=== PATIENT | female | born 1995 | race Caucasian/White ===

== ENCOUNTER 2020-01-29 14:47 | Emergency (ER) | payer OTHER ==
[2020-01-29 15:28] LABS: Urine Blood NEGATIVE (NEG); Urine Glucose NEGATIVE (NEG); Urine Protein 2+ (NEG); Urine Specific Gravity 1.025 (1.005-1.030)
[2020-01-29 15:40] LABS: Urine Amorphous Sediment 2+ /HPF (NONE SEEN); Urine Bacteria 20-50 /HPF (<20); Urine Culture Reflex Order NOT NEEDED; Urine RBC <5 /HPF (NONE SEEN)
[2020-01-29] MEDS ORDERED: NA CHLORIDE 0.9% 1,000 ML ONE ×2 (16:24→17:08)
[2020-01-29 16:29] LABS: Absolute Lymphocytes (CBC) 0.7 K/uL (0.7-4.9); Basophils % 0.2 % (0-1.3); Hematocrit 46.8 % (36.0-45.0); Lymphocytes % 3.7 % (15.3-44.8); MPV 8.3 fL (7.6-11.3); RBC Red Blood Cell Count 5.18 M/uL (3.86-4.86)
[2020-01-29 16:30] LABS: Protime INR 1.09
--- NOTE | 2020-01-29 16:40 | RAD REPORT ---
EXAM DESCRIPTION: CT - Head Brain Wo Cont - 01/29/2020 4:31 pm CLINICAL HISTORY: Headache COMPARISON: None. TECHNIQUE: Computed axial tomography of the head was obtained. IV contrast was not requested. All CT scans are performed using dose optimization technique as appropriate and may include automated exposure control or mA/KV adjustment according to patient size. FINDINGS: An intracranial bleed is not seen . The ventricles are normal in caliber. No extra-axial fluid collection is noted. Fluid within the sinuses/ mastoids is not seen. IMPRESSION: No acute intracranial abnormality is seen. If patient's symptoms persist MRI of the bra in would be recommended.
[2020-01-29 16:43] LABS: ALT/SGPT 21 U/L (12-78); AST/SGOT 11 U/L (15-37); Albumin 4.3 g/dL (3.4-5.0); Alkaline Phosphatase 129 U/L (45-117); BUN Blood Urea Nitrogen 10 mg/dL (7-18); Bicarbonate 26 mmol/L (21-32); Bilirubin Direct < 0.1 mg/dL (0-0.2); Bilirubin Total 0.4 mg/dL (0.2-1.0); Glucose Level 81 mg/dL (74-106); Magnesium 2.1 mg/dL (1.8-2.4); Potassium 3.6 mmol/L (3.5-5.1); Protein, Total 9.5 g/dL (6.4-8.2); Sodium Level 137 mmol/L (136-145)
[2020-01-29] MEDS ORDERED: DIPHENHYDRAMINE 50 MG/ML VIAL ONE (17:07)
[2020-01-29] MEDS ORDERED: METOCLOPRAMIDE 10 MG/2mL INJ ONE (17:07)
[2020-01-29] MEDS ORDERED: ONDANSETRON 4 MG/2 ML VIAL ONE (17:08)
[2020-01-29] MEDS ORDERED: dexAMETHasone 10 MG/ML VIAL ONE (17:08)
[2020-01-29 17:37] LABS: Blood Morphology Comment NOT SEEN (NOT SEEN); Platelet Estimate ADEQ; Urine White Blood Cell Casts OK
[2020-01-29] MEDS ORDERED: ACETAMINOPHEN 500 MG TAB ONE (18:23)
--- NOTE | 2020-01-29 19:11 | ER ---
Nurse's Notes [facility] Name: Debbi Roman Age: 24 yrs Sex: Female : 1995 Arrival Date: 01/29/2020 Time: 14:51 Bed 19 Private MD: Diagnosis: Dizziness and giddiness;Headache;Nausea;Back pain Presentation: 01/28 14:55 Chief complaint: Patient states: Dizzy spells started today. History of dizzy spells ca1 since a kid. Reports headache, back pain and nausea, denies vomiting. Coronavirus screen: The patient has NOT traveled to a country currently being monitored by the [facility] within the last 14 days. The patient has NOT had contact with any known and/or suspected case of coronavirus. Ebola Screen: Patient negative for fever greater than or equal to 101.5 degrees Fahrenheit, and additional compatible Ebola Virus Disease symptoms Patient denies exposure to infectious person. Patient denies travel to an Ebola-affected area in the 21 days before illness onset. No symptoms or risks identified at this time. Initial Sepsis Screen: Does the patient meet any 2 criteria? No. Patient's initial sepsis screen is negative. Does the patient have a suspected source of infection? No. Patient's initial sepsis screen is negative. Risk Assessment: Do you want to hurt yourself or someone else? Patient reports no desire to harm self or others. Onset of symptoms was January 29, 2020. 14:55 Method Of Arrival: Ambulatory ca1 14:55 Acuity: CAMILA 3 ca1 Triage Assessment: 14:58 General: Appears in no apparent distress. comfortable, Behavior is calm, cooperative, ca1 appropriate for age. 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 - Social history:: Smoking status: Patient reports the use of cigarette tobacco products, smokes one pack cigarettes per day. Screenin:58 Abuse screen: Denies threats or abuse. Denies injuries from another. Nutritional jl7 screening: No deficits noted. Tuberculosis screening: No symptoms or risk factors identified. Fall Risk IV access (20 points). Total Arreaga Fall Scale indicates No Risk (0-24 pts). Assessment: 15:20 General: Appears in no apparent distress. uncomfortable, Behavior is calm, cooperative, jl7 appropriate for age. Pain: Complains of pain in SAWANT Pain currently is 10 out of 10 on a pain scale. Neuro: Level of Consciousness is awake, alert, obeys commands, Oriented to person, place, time, situation. Cardiovascular: Patient's skin is warm and dry. Respiratory: Airway is patent Respiratory effort is even, unlabored, Respiratory pattern is regular, symmetrical. GI: Abdomen is non-distended, Reports nausea. : No signs and/or symptoms were reported regarding the genitourinary system. EENT: No signs and/or symptoms were reported regarding the EENT system. Derm: Skin is pink, warm \T\ dry. 16:30 Reassessment: Patient appears in no apparent distress at this time. Patient and/or jl7 family updated on plan of care and expected duration. Pain level reassessed. Patient is alert, oriented x 3, equal unlabored respirations, skin warm/dry/pink. 18:15 Reassessment: Patient appears in no apparent distress at this time. Patient and/or jl7 family updated on plan of care and expected duration. Pain level reassessed. Patient is alert, oriented x 3, equal unlabored respirations, skin warm/dry/pink. SAWANT rated 5/10 at this time. Patient states symptoms have improved. 19:08 Reassessment: Patient and/or family updated on plan of care and expected duration. Pain ea level reassessed. Patient is alert, oriented x 3, equal unlabored respirations, skin warm/dry/pink. Discharge instruction given to patient, verbalized the understanding of instruction. Pt left ED ambulatory accompanied by family. Pt tolerating well. Vital Signs: 14:55 BP 96 / 58; Pulse 111; Resp 17 S; Temp 97.5(TE); Pulse Ox 100% on R/A; Weight 89.81 kg ca1 (R); Height 5 ft. 6 in. (167.64 cm) (R); 15:28 BP 117 / 64 LA Supine; Pulse 93; Resp 16; Pulse Ox 100% on R/A; dh3 15:30 BP 107 / 62 LA Sitting; Pulse 107; Resp 18; Pulse Ox 100% on R/A; dh3 15:32 BP 103 / 53 LA Standing; Pulse 119; Resp 19; Pulse Ox 100% on R/A; dh3 16:58 BP 114 / 76; Pulse 111; Resp 15 S; Pulse Ox 99% on R/A; jl7 17:44 BP 124 / 73; Pulse 108; Resp 16 S; Temp 99.6(O); Pulse Ox 100% on R/A; jl7 19:00 BP 117 / 65; Pulse 103; Resp 18; Temp 98.9; Pulse Ox 98% ; ea 14:55 Body Mass Index 31.96 (89.81 kg, 167.64 cm) ca1 ED Course: 14:51 Patient arrived in ED. mr 14:58 Triage completed. ca1 14:58 Arm band placed on right wrist. ca1 15:11 Sinan Wooten PA is PHCP. cp 15:11 Girish Webster MD is Attending Physician. cp 15:16 Urine collected: clean catch specimen, clear. dh3 15:20 Patient has correct armband on for positive identification. Placed in gown. Bed in low jl7 position. Call light in reach. Side rails up X 1. director of video analytics on. Pulse ox on. NIBP on. 15:48 Jean Carlos Pierre, MAGED is Primary Nurse. jl7 16:00 Initial lab(s) drawn, by me, sent to lab. Inserted saline lock: 22 gauge in right jl7 antecubital area, using aseptic technique. Blood collected. 16:32 CT Head Brain wo Cont In Process Unspecified. EDMS 16:46 EKG done, by ED staff, reviewed by Sinan DUBON. jp3 19:05 No provider procedures requiring assistance completed. IV discontinued, intact, ea bleeding controlled, No redness/swelling at site. Pressure dressing applied. Administered Medications: 16:50 Drug: NS 0.9% 1000 ml Route: IV; Rate: 1 bolus; Site: right antecubital; jl7 17:45 Follow up: Response: No adverse reaction; IV Status: Completed infusion; IV Intake: jl7 1000ml 17:00 Drug: Zofran (Ondansetron) 4 mg Route: IVP; Site: right antecubital; 7 17:15 Follow up: Response: No adverse reaction; Nausea is decreased jl7 17:02 Drug: Benadryl 12.5 mg Route: IVP; Site: right antecubital; jl7 18:16 Follow up: Response: No adverse reaction jl7 17:04 Drug: Reglan 10 mg Route: IVP; Site: right antecubital; jl7 18:16 Follow up: Response: No adverse reaction; Pain is decreased jl7 17:06 Drug: Decadron - Dexamethasone 10 mg Route: IVP; Site: right antecubital; jl7 17:30 Follow up: Response: No adverse reaction; Pain is decreased jl7 17:10 Drug: NS 0.9% 1000 ml Route: IV; Rate: 1 bolus; Site: right antecubital; jl7 19:00 Follow up: Response: No adverse reaction; IV Status: Completed infusion; IV Intake: ea 500ml 18:20 Drug: Tylenol 1000 mg Route: PO; jl7 19:00 Follow up: Response: No adverse reaction ea Intake: 17:45 IV: 1000ml; Total: 1000ml. jl7 19:00 IV: 500ml; Total: 1500ml. ea Outcome: 18:49 Discharge ordered by MD. chapito 19:10 Discharged to home ambulatory, with significant other. ea 19:10 Condition: stable 19:10 Discharge instructions given to patient, Instructed on discharge instructions, follow up and referral plans. medication usage, Demonstrated understanding of instructions, follow-up care, medications, Prescriptions given X 3. 19:11 Patient left the ED. ea Signatures: Dispatcher [employer] EDHI Kemi Salazar Sinan Mueller PA PA cp Leal, Jahala, RN RN jl7 Rae Laureano 3 Sapphire Bowen RN RN ea Pisarski, Jacob 3 Ning Johnston RN RN ca1
--- NOTE | 2020-01-29 19:11 | EDPHYS ---
Physician Documentation [facility] Name: Debbi Roman Age: 24 yrs Sex: Female : 1995 Arrival Date: 01/29/2020 Time: 14:51 Bed 19 Private MD: ED Physician Girish Webster HPI: 01/28 15:45 This 24 yrs old Female presents to ER via Ambulatory with complaints of cp Dizziness, Nausea. 15:45 The patient presents with dizziness, feeling faint, lightheadedness, sense of spinning. cp Onset: The symptoms/episode began/occurred today. Associated signs and symptoms: Pertinent positives: headache, nausea, Pertinent negatives: abdominal pain, chest pain, focal weakness, palpitations, syncope, vomiting. Severity of symptoms: in the emergency department the symptoms are unchanged despite home interventions. Patient's baseline: Neuro: alert and fully oriented, Motor: no deficits, Ambulation: walks without assistance, Speech: normal. 15:45 The patient has experienced similar episodes in the past, multiple times, today's cp symptoms are similar, to previous episodes. 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 - Social history:: Smoking status: Patient reports the use of cigarette tobacco products, smokes one pack cigarettes per day. ROS: 15:50 Constitutional: Negative for body aches, chills, fever, poor PO intake. cp 15:50 Eyes: Negative for injury, pain, redness, and discharge. cp 15:50 ENT: Negative for drainage from ear(s), ear pain, sore throat, difficulty swallowing, difficulty handling secretions. 15:50 Cardiovascular: Negative for chest pain, palpitations. 15:50 Respiratory: Negative for cough, shortness of breath, wheezing. 15:50 Abdomen/GI: Positive for nausea, Negative for abdominal pain, vomiting, diarrhea, constipation. 15:50 Back: Positive for pain at rest, pain with movement. 15:50 : Negative for urinary symptoms. 15:50 Skin: Negative for rash. 15:50 Neuro: Positive for dizziness, headache, near syncope, Negative for altered mental status, weakness. 15:50 All other systems are negative. Exam: 15:55 Constitutional: The patient appears in no acute distress, alert, awake, cp non-diaphoretic, non-toxic, well developed, well nourished. 15:55 Head/Face: Normocephalic, atraumatic. Eyes: Pupils equal round and reactive to light, cp extra-ocular motions intact. Lids and lashes normal. Conjunctiva and sclera are non-icteric and not injected. Cornea within normal limits. Periorbital areas with no swelling, redness, or edema. ENT: Nares patent. No nasal discharge, no septal abnormalities noted. Tympanic membranes are normal and external auditory canals are clear. Oropharynx with no redness, swelling, or masses, exudates, or evidence of obstruction, uvula midline. Mucous membranes moist. Neck: Trachea midline, no thyromegaly or masses palpated, and no cervical lymphadenopathy. Supple, full range of motion without nuchal rigidity, or vertebral point tenderness. No Meningismus. Chest/axilla: Normal chest wall appearance and motion. Nontender with no deformity. No lesions are appreciated. 15:55 Cardiovascular: Rate: tachycardic, Rhythm: regular, Heart sounds: murmur, not appreciated, rub, not appreciated, gallop, not appreciated, Edema: is not appreciated. 15:55 Respiratory: the patient does not display signs of respiratory distress, Respirations: normal, no use of accessory muscles, no retractions, labored breathing, is not present, Breath sounds: are clear throughout, no decreased breath sounds, no stridor, no wheezing. 15:55 Abdomen/GI: Inspection: abdomen appears normal, Bowel sounds: active, all quadrants, Palpation: abdomen is soft and non-tender, in all quadrants, rebound tenderness, is not appreciated, voluntary guarding, is not appreciated, involuntary guarding, is not appreciated. 15:55 Back: pain, that is mild, of the low back area and mid back area, ROM is normal. 15:55 Skin: cellulitis, is not appreciated, no rash present. 15:55 Neuro: Orientation: to person, place \T\ time. Mentation: is normal, Cerebellar function: is grossly normal, Motor: moves all fours, strength is normal, Sensation: is normal. 16:55 ECG was reviewed by the Attending Physician. Vital Signs: 14:55 BP 96 / 58; Pulse 111; Resp 17 S; Temp 97.5(TE); Pulse Ox 100% on R/A; Weight 89.81 kg ca1 (R); Height 5 ft. 6 in. (167.64 cm) (R); 15:28 BP 117 / 64 LA Supine; Pulse 93; Resp 16; Pulse Ox 100% on R/A; dh3 15:30 BP 107 / 62 LA Sitting; Pulse 107; Resp 18; Pulse Ox 100% on R/A; dh3 15:32 BP 103 / 53 LA Standing; Pulse 119; Resp 19; Pulse Ox 100% on R/A; dh3 16:58 BP 114 / 76; Pulse 111; Resp 15 S; Pulse Ox 99% on R/A; jl7 17:44 BP 124 / 73; Pulse 108; Resp 16 S; Temp 99.6(O); Pulse Ox 100% on R/A; jl7 19:00 BP 117 / 65; Pulse 103; Resp 18; Temp 98.9; Pulse Ox 98% ; ea 14:55 Body Mass Index 31.96 (89.81 kg, 167.64 cm) ca1 MDM: 15:17 Patient medically screened. cp 16:00 Differential diagnosis: cardiac arrhythmia, generalized weakness, hypovolemia, cp idiopathic dizziness, , vertigo. 18:00 Data reviewed: vital signs, nurses notes, lab test result(s), EKG, radiologic studies, cp CT scan. 18:00 Test interpretation: by ED physician or midlevel provider: ECG. 18:45 Counseling: I had a detailed discussion with the patient and/or guardian regarding: the cp historical points, exam findings, and any diagnostic results supporting the discharge/admit diagnosis, lab results, radiology results, to return to the emergency department if symptoms worsen or persist or if there are any questions or concerns that arise at home. 18:45 Response to treatment: the patient's symptoms have markedly improved after treatment, cp and as a result, I will discharge patient. ED course: VSS. Symptoms improved with IV fluids and meds. Will discharge to home for continued monitoring. 01/28 14:52 Order name: Urine Culture snw 01/28 14:52 Order name: Urine Microscopic Only; Complete Time: 15:44 snw 01/28 16:56 Interpretation: Normal except: UBACT 20-50. cp 01/28 15:16 Order name: Urine Dipstick--Ancillary (enter results); Complete Time: 15:44 bd 01/28 17:51 Interpretation: Normal except: UPROT 2+. cp / 15:16 Order name: Urine --Ancillary (enter results); Complete Time: 15:44 bd 01/28 15:45 Order name: Basic Metabolic Panel; Complete Time: 16:55 cp 01/28 15:45 Order name: CBC with Diff; Complete Time: 17:51 cp 01/28 16:55 Interpretation: Normal except: WBC 18.2; RBC 5.18; HGB 15.6; HCT 46.8; BERE% 91.2; LYM% cp 3.7; NEUT A 16.6. 01/28 15:45 Order name: LFT's; Complete Time: 16:55 cp 01/28 16:56 Interpretation: Normal except: AST 11; ALK 129; TP 9.5; GLOB 5.2; A/G 0.8. cp 01/28 15:45 Order name: Magnesium; Complete Time: 16:55 cp 01/28 15:45 Order name: PT-INR; Complete Time: 16:55 cp 01/28 16:22 Order name: CT Head Brain wo Cont; Complete Time: 16:55 cp 01/28 16:56 Interpretation: Report reviewed. cp 01/28 17:37 Order name: CBC Smear Scan; Complete Time: 17:51 EDMS 01/28 17:51 Interpretation: Reviewed. cp 01/28 14:52 Order name: Urine Test (obtain specimen); Complete Time: 15:16 snw 01/28 14:52 Order name: Urine Dipstick-Ancillary (obtain specimen); Complete Time: 15:16 snw 01/28 15:11 Order name: Orthostatics; Complete Time: 15:35 cp 01/28 15:45 Order name: EKG; Complete Time: 15:46 cp 01/28 15:45 Order name: Cardiac monitoring; Complete Time: 16:32 cp 01/28 15:45 Order name: EKG - Nurse/Tech; Complete Time: 16:32 cp 01/28 15:45 Order name: IV Saline Lock; Complete Time: 16:32 cp 01/28 15:45 Order name: Labs collected and sent; Complete Time: 16:32 cp 04 15:45 Order name: O2 Per Protocol; Complete Time: 16:32 cp 04 15:45 Order name: O2 Sat Monitoring; Complete Time: 16:32 cp EC:55 Rate is 103 beats/min. Rhythm is regular. WV interval is normal. QRS interval is cp normal. QT interval is normal. Interpreted by me. Reviewed by me. Administered Medications: 16:50 Drug: NS 0.9% 1000 ml Route: IV; Rate: 1 bolus; Site: right antecubital; jl7 17:45 Follow up: Response: No adverse reaction; IV Status: Completed infusion; IV Intake: jl7 1000ml 17:00 Drug: Zofran (Ondansetron) 4 mg Route: IVP; Site: right antecubital; jl7 17:15 Follow up: Response: No adverse reaction; Nausea is decreased jl7 17:02 Drug: Benadryl 12.5 mg Route: IVP; Site: right antecubital; jl7 18:16 Follow up: Response: No adverse reaction jl7 17:04 Drug: Reglan 10 mg Route: IVP; Site: right antecubital; jl7 18:16 Follow up: Response: No adverse reaction; Pain is decreased jl7 17:06 Drug: Decadron - Dexamethasone 10 mg Route: IVP; Site: right antecubital; jl7 17:30 Follow up: Response: No adverse reaction; Pain is decreased jl7 17:10 Drug: NS 0.9% 1000 ml Route: IV; Rate: 1 bolus; Site: right antecubital; jl7 19:00 Follow up: Response: No adverse reaction; IV Status: Completed infusion; IV Intake: ea 500ml 18:20 Drug: Tylenol 1000 mg Route: PO; jl7 19:00 Follow up: Response: No adverse reaction ea Disposition: 01/29 10:47 Co-signature as Attending Physician, Girish Webster MD I agree with the assessment and kdr plan of care. Disposition: 01/29/20 18:49 Discharged to Home. Impression: Dizziness and giddiness, Headache, Nausea, Back pain. - Condition is Stable. - Discharge Instructions: Dizziness, General Headache Without Cause, Nausea, Adult. - Prescriptions for Meclizine 25 mg Oral Tablet - take 1 tablet by ORAL route every 8 hours As needed; 30 tablet. Zofran 4 mg Oral Tablet - take 1 tablet by ORAL route every 12 hours As needed; 20 tablet. Bactrim DS 800- 160 mg Oral Tablet - take 1 tablet by ORAL route every 12 hours for 5 days; 10 tablet. - Medication Reconciliation Form, Thank You Letter, Antibiotic Education, Prescription Opioid Use form. - Follow up: Private Physician; When: 2 - 3 days; Reason: Recheck today's complaints. - Problem is new. - Symptoms have improved. Signatures: Dispatcher [employer] EDMS Girish Webster MD MD kdr Therrien, Shelly, FATMATA-C CLEANER ASSISTANT-Csnw Sinan Wooten PA PA cp Leal, Jahala, RN RN jl7 Sapphire Bowen RN RN ea Acob, Cheryl, RN RN ca1 Corrections: (The following items were deleted from the chart) 01/28 17:22 01/27 16:55 ECG was reviewed by the Attending Physician. cp 01/28 17:22 01/27 16:55 Rate is 103 beats/min. Rhythm is regular. WV interval is normal. QRS cp interval is normal. QT interval is normal. Interpreted by me. Reviewed by me. cp 01/28 18:49 18:49 01/29/2020 18:49 Discharged to Home. Impression: Dizziness and giddiness; cp Headache; Nausea. Condition is Stable. Forms are Medication Reconciliation Form, Thank You Letter, Antibiotic Education, Prescription Opioid Use. Follow up: Private Physician; When: 2 - 3 days; Reason: Recheck today's complaints. Problem is new. Symptoms have improved. cp 19:11 18:49 01/29/2020 18:49 Discharged to Home. Impression: Dizziness and giddiness; ea Headache; Nausea; Back pain. Condition is Stable. Forms are Medication Reconciliation Form, Thank You Letter, Antibiotic Education, Prescription Opioid Use. Follow up: Private Physician; When: 2 - 3 days; Reason: Recheck today's complaints. Problem is new. Symptoms have improved. cp
[2020-01-29 19:27] VITALS: BP 124/73; TEMP 99.6; O2SAT 100
--- NOTE | 2020-01-30 11:40 | EKG ---
Test Date: 2020-01-29 Test Time: 16:46:22 Quote Clerk: YSABEL MEASUREMENT RESULTS: Intervals: Rate: 103 IN: 190 QRSD: 98 QT: 332 QTc: 434 [facility]: P: 55 IN: 190 QRS: 84 T: 51 INTERPRETIVE STATEMENTS: Sinus tachycardia Possible Left atrial enlargement Incomplete right bundle branch block Borderline ECG No previous ECG available for comparison Electronically Signed On 01-30-20 11:37:00 PHLEBOTOMY MANAGER by Armani Montalvo
== END 2020-01-29 19:11 | disposition home or self-care (01) ==
LOC: ER 14:47
DX: R51 Headache (principal); M54.5 Low back pain; R11.0 Nausea; R42 Dizziness and giddiness
CPT/HCPCS: 96361; 93005; 87088; 85025; 87086; 80048; 36415; 83735; 81025; 85610; 80076; 70450; 96375; 96374; 99285; J2765; J1200; J1100; J7030 ×2; J2405; 81003; 81015

== ENCOUNTER 2021-07-04 16:39 | Emergency (ER) | payer OTHER ==
--- NOTE | 2021-07-04 17:22 | EDPHYS ---
Physician Documentation [facility] Name: Debbi Roman Age: 25 yrs Sex: Female : 1995 Arrival Date: 07/04/2021 Time: 16:44 Bed Waiting Private MD: ED Physician Sinan Dominguez HPI: 07/04 17:31 This 25 yrs old Female presents to ER via Ambulatory with complaints of Covid kb Test. 17:32 Pt states she was around her friend that had been exposed to covid by their child so kb she wanted to get a covid test to make sure she didn't have it. Denies any symptoms. . The patient has not experienced similar symptoms in the past. The patient has not recently seen a physician. 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 - Social history:: Smoking status: Patient reports the use of cigarette tobacco products, smokes one-half pack cigarettes per day. ROS: 17:31 Constitutional: Negative for fever, chills, and weight loss. kb 17:31 All other systems are negative. Exam: 17:31 Constitutional: This is a well developed, well nourished patient who is awake, alert, kb and in no acute distress. Head/Face: Normocephalic, atraumatic. ENT: Moist Mucous membranes Respiratory: Respirations even and unlabored. No increased work of breathing, no retractions or nasal flaring. Skin: Warm, dry with normal turgor. Normal color. MS/ Extremity: Pulses equal, no cyanosis. Neurovascular intact. Full, normal range of motion. Neuro: Awake and alert, GCS 15, oriented to person, place, time, and situation. Moves all extremities. Normal gait. Psych: Awake, alert, with orientation to person, place and time. Behavior, mood, and affect are within normal limits. Vital Signs: 17:00 BP 117 / 60; Pulse 87; Resp 15; Temp 97; Pulse Ox 98% ; jl7 MDM: 17:06 Patient medically screened. kb 17:24 Data reviewed: vital signs, nurses notes. Data interpreted: Pulse oximetry: on room air kb is 98 %. Interpretation: normal. Counseling: I had a detailed discussion with the patient and/or guardian regarding: the historical points, exam findings, and any diagnostic results supporting the discharge/admit diagnosis, the need for outpatient follow up, a family practitioner, to return to the emergency department if symptoms worsen or persist or if there are any questions or concerns that arise at home. Administered Medications: No medications were administered Disposition: 17:24 Encounter for covid test - asymptomatic. kb 07/05 07:37 Co-signature as Attending Physician, Sinan Dominguez MD I agree with the assessment and aide plan of care. Disposition Summary: 07/04/21 17:22 Discharge Ordered Location: Home kb Condition: Stable kb Diagnosis - Encounter for screening, unspecified kb Followup: kb - With: Emergency Department - When: As needed - Reason: Worsening of condition Followup: kb - With: Private Physician - When: 2 - 3 days - Reason: Recheck today's complaints, Continuance of care, Re-evaluation by your physician Forms: - Medication Reconciliation Form kb - Thank You Letter kb - Antibiotic Education kb - Prescription Opioid Use kb Signatures: Sue Villa, DIRECTOR MOBILE-C DIRECTOR MOBILE-Sinan Rhodes MD MD cha Leal, Jahala, RN RN jl7 Corrections: (The following items were deleted from the chart) 07/04 17:24 17:24 Counseling: I had a detailed discussion with the patient and/or guardian kb regarding: the historical points, exam findings, and any diagnostic results supporting the discharge/admit diagnosis, lab results, the need for outpatient follow up, a family practitioner, to return to the emergency department if symptoms worsen or persist or if there are any questions or concerns that arise at home, kb
--- NOTE | 2021-07-04 17:22 | ER ---
Nurse's Notes [facility] Name: Debbi Roman Age: 25 yrs Sex: Female : 1995 Arrival Date: 07/04/2021 Time: 16:44 Bed Waiting Private MD: Diagnosis: Encounter for screening, unspecified Presentation: 07/04 17:00 Chief complaint: Patient states: I want to get tested for COVID because I was exposed, jl7 denies symptoms. Coronavirus screen: Client denies travel out of the [place] in the last 14 days. At this time, the client does not indicate any symptoms associated with coronavirus-19. Ebola Screen: No symptoms or risks identified at this time. Initial Sepsis Screen: Does the patient meet any 2 criteria? No. Patient's initial sepsis screen is negative. Does the patient have a suspected source of infection? No. Patient's initial sepsis screen is negative. Risk Assessment: Do you want to hurt yourself or someone else? Patient reports no desire to harm self or others. Onset of symptoms is unknown. 17:00 Method Of Arrival: Ambulatory jl7 17:00 Acuity: CAMILA 4 jl7 Triage Assessment: 17:05 General: Appears in no apparent distress. comfortable, Behavior is calm, cooperative, jl7 appropriate for age. Pain: Denies pain. 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 - Social history:: Smoking status: Patient reports the use of cigarette tobacco products, smokes one-half pack cigarettes per day. Assessment: 16:55 Reassessment: DELGADO Rogers in triage assessing pt. jl7 Vital Signs: 17:00 BP 117 / 60; Pulse 87; Resp 15; Temp 97; Pulse Ox 98% ; jl7 ED Course: 16:44 Patient arrived in ED. ds1 17:02 Triage completed. jl7 17:05 [facility]C [facility]. kb 17:05 Sinan Dominguez MD is Attending Physician. kb 17:05 Arm band placed on right wrist. jl7 Administered Medications: No medications were administered Outcome: 17:14 Medical screen evaluation completed per provider. Patient declined treatment. jl7 17:22 Discharge ordered by . shae 17:25 Patient left the ED. eb Signatures: Sue Villa FNP-C FNP-Rubi Agudelo ds1 Jean Carlos Pierre, RN RN jl7 Ana Cristina Lucas
[2021-07-04 17:34] VITALS: BP 96/64; TEMP 98.7; O2SAT 99
== END 2021-07-04 17:25 | disposition home or self-care (01) ==
LOC: ER 16:39
DX: Z20.822 Contact with and (suspected) exposure to COVID-19 (principal)
CPT/HCPCS: 99281